=== PATIENT | male | born 1965 | race Caucasian/White ===

== ENCOUNTER 2019-01-12 17:48 | Emergency (ER) | payer SELFPAY ==
--- NOTE | 2019-01-12 18:13 | ER Document Report ---
ED Medical Screen (RME) - General Chief Complaint: Psych Problem Stated Complaint: IVC Time Seen by Provider: 01/12/19 18:05 TRAVEL OUTSIDE OF THE [place] IN LAST 30 DAYS: No - HPI Notes: 01/12/19 18:10 Patient is a 53-year-old male with a history of hypertension emergency (not currently on any medication) and alcohol abuse who was residing at [facility] since this past Sunday who presents by also [facility] on IVC papers for having SI and aggression. Patient does admit to auditory hallucinations. Patient states that right now he cannot tell me how he feels. He has otherwise been able to eat and drink without difficulty. He has not had any alcohol for the past week. No HI. Denies FELIX, fever, neck pain, URI, CP, SOB, Abd pain, dysuria, back pain, or rash. I have treated and performed a rapid initial assessment of this patient. A comprehensive ED assessment and evaluation of the patient, analysis of test results and completion of medical decision making process will be conducted by a dditional ED providers. PHYSICAL EXAMINATION: GENERAL: Well-appearing, well-nourished and in no acute distress. A&Ox4. Answers questions appropriately. LUNGS: Breath sounds clear to auscultation bilaterally and equal. No wheezes rales or rhonchi. HEART: Regular rate and rhythm without murmurs, rubs, gallops. PSYCH: irritable, frustrated - Related Data Allergies/Adverse Reactions: Penicillins Allergy (Verified 01/12/19 17:49) Past Medical History - Past Medical History Cardiac Medical History: Reports: Hx Hypertension Psychiatric Medical History: Reports: Hx Anxiety, Hx Depression, Hx Post Traumatic Stress Disorder Past Surgical History: Reports: Hx Abdominal Surgery - Hernia, Hx Oral Surgery - Immunizations Hx Diphtheria, Pertussis, Tetanus Vaccination: No Physical Exam - Vital signs Vitals: Temp Pulse Resp BP Pulse Ox 98.9 F 99 14 184/110 H 96 01/12/19 17:58 01/12/19 17:58 01/12/19 17:58 01/12/19 17:58 01/12/19 17:58 Course - Vital Signs Vital signs: Temp Pulse Resp BP Pulse Ox 98.9 F 99 14 184/110 H 96 01/12/19 17:58 01/12/19 17:58 01/12/19 17:58 01/12/19 17:58 01/12/19 17:58
[2019-01-12 19:18] LABS: ABSOLUTE BASOPHILS # (AUTO) 0.1 10^3/uL (0.0-0.2); ABSOLUTE EOSINOPHILS # (AUTO) 0.3 10^3/uL (0.0-0.6); ABSOLUTE LYMPHOCYTES (AUTO) 1.7 10^3/uL (0.5-4.7); ABSOLUTE MONOCYTES (AUTO) 0.8 10^3/uL (0.1-1.4); ABSOLUTE NEUT (AUTO) 4.4 10^3/uL (1.7-8.2); BASOPHILS % (AUTO) 1.4 % (0-2); EOSINOPHILS % (AUTO) 4.1 % (0-6); HEMATOCRIT 39.8 % (37.9-51.0); HEMOGLOBIN 13.3 g/dL (13.5-17.0); LYMPHOCYTES % (AUTO) 23.4 % (13-45); MEAN CORPUSCULAR HEMOGLOBIN 29.8 pg (27.0-33.4); MEAN CORPUSCULAR HGB CONC 33.4 g/dL (32.0-36.0); MEAN CORPUSCULAR VOLUME 89 fl (80-97); MONOCYTES % (AUTO) 10.6 % (3-13); PLATELET COUNT 261 10^3/uL (150-450); RED BLOOD COUNT 4.46 10^6/uL (4.35-5.55); RED CELL DISTRIBUTION WIDTH 15.4 % (11.5-14.0); SEGMENTED NEUTROPHILS % (AUTO) 60.5 % (42-78); TOTAL CELLS COUNTED % (AUTO) 100 %; WHITE BLOOD COUNT 7.2 10^3/uL (4.0-10.5)
[2019-01-12 19:21] LABS: APPEARANCE,URINE CLEAR; BILIRUBIN,URINE NEGATIVE (NEGATIVE); COLOR,URINE YELLOW; GLUCOSE, URINE NEGATIVE (NEGATIVE); KETONES,URINE TRACE mg/dL (NEGATIVE); LEUKOCYTE ESTERASE,URINE NEGATIVE (NEGATIVE); NITRITE,URINE NEGATIVE (NEGATIVE); PROTEIN,URINE NEGATIVE (NEGATIVE); URINE SPECIFIC GRAVITY 1.018; UROBILINOGEN,URINE NEGATIVE mg/dL (<2.0)
[2019-01-12 19:36] LABS: URINE AMPHETAMINES SCREEN NEGATIVE; URINE BARBITURATES SCREEN NEGATIVE; URINE BENZODIAZEPINES SCREEN NEGATIVE; URINE COCAINE SCREEN NEGATIVE; URINE MARIJUANA (THC) SCREEN UNCONFIRMED POSITIVE; URINE METHADONE SCREEN NEGATIVE; URINE PHENCYCLIDINE SCREEN NEGATIVE
[2019-01-12 19:39] LABS: ALBUMIN 3.9 g/dL (3.5-5.0); ALKALINE PHOSPHATASE 90 U/L (38-126); ANION GAP 7 (5-19); ASPARTATE AMINO TRANSFERASE 22 U/L (17-59); BILIRUBIN,DIRECT 0.2 mg/dL (0.0-0.4); BILIRUBIN,TOTAL 0.2 mg/dL (0.2-1.3); BLOOD UREA NITROGEN 12 mg/dL (7-20); CALCIUM 9.1 mg/dL (8.4-10.2); CARBON DIOXIDE 31 mmol/L (22-30); CHLORIDE 101 mmol/L (98-107); GLUCOSE 98 mg/dL (75-110); POTASSIUM 4.2 mmol/L (3.6-5.0); TOTAL PROTEIN 6.7 g/dL (6.3-8.2)
[2019-01-12 19:41] LABS: ACETAMINOPHEN < 10 ug/mL (10-30); ALCOHOL < 10 mg/dL (NONE DETECTED); SALICYLATE < 1.0 mg/dL (2.0-20.0)
[2019-01-12] MEDS ORDERED: LORAZEPAM 1 MG TABLET PO PRN (20:58)
[2019-01-12] MEDS ORDERED: HYDROXYZINE HCL 10 MG TABLET PO PRN (20:59)
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
[2019-01-12] MEDS: LISINOPRIL 10 MG TABLET PO SCH (21:09)
[2019-01-12] MEDS ORDERED: ROPINIROLE HCL 0.25 MG TABLET PO SCH (22:00)
[2019-01-12] MEDS ORDERED: QUETIAPINE FUMARATE 100 MG TABLET PO SCH (22:15)
[2019-01-12] MEDS ORDERED: ROPINIROLE HCL 0.25 MG TABLET ONE (22:37)
--- NOTE | 2019-01-12 22:40 | EKG REPORT ---
SEVERITY:- BORDERLINE ECG - SINUS RHYTHM VENTRICULAR PREMATURE COMPLEX BORDERLINE INFERIOR Q WAVES : Confirmed by: Yuri Pena MD 12-Jan-2019 22:38:40
[2019-01-13] MEDS ORDERED: ACETAMINOPHEN 325 MG TABLET PO ONE (07:41)
[2019-01-13 08:28] VITALS: BP 181/110
[2019-01-13] MEDS: LISINOPRIL 10 MG TABLET PO SCH (09:34)
--- NOTE | 2019-01-13 10:06 | ER Document Report ---
Doctor's Note Notes: 01/13/19 10:04 Patient is a 53-year-old male presents the emergency department for evaluation. He was sent for evaluation from [facility]. Evidently he expressed suicidal ideation there. They stated there was "nothing else they could do for him." He has a long-standing history of alcohol dependence. He states he is suicidal. He states he plans to "drink himself to ." He admits openly that he has no place to go. He states "I need to be placed in a long-term psychiatric facility." He complains of a headache, but states that the Tylenol he was given earlier [place] is some. Physical exam is a pleasant 53-year-old male who appears his stated age in no acute distress. Head is neuropsych and atraumatic. Pupils are equal round, reactive to light. Oral mucosa is moist. Heart regular rate and rhythm, lungs are clear station bilaterally. Patient is cooperative with examiner, but makes diminished eye contact. In summary, this is a 53-year-old male with long-standing history of substance abuse. There is certainly a significant amount of secondary gain with him claiming to be suicidal at this time, as he does not have any place to go. He states he has no family or friends with which he can stay. He asks to be placed somewhere long-term. We will defer to psychosocial evaluation for ultimate disposition.
[2019-01-13] MEDS ORDERED: OLANZAPINE 2.5 MG TABLET PO SCH (11:00)
[2019-01-13] MEDS ORDERED: IBUPROFEN 600 MG TABLET PO ONE (13:29)
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
== END 2019-01-13 14:25 | disposition home or self-care (01) ==
LOC: ER 17:48
DX: R45.851 Suicidal ideations (principal); F10.20 Alcohol dependence, uncomplicated; I10 Essential (primary) hypertension; R51 Headache; I49.3 Ventricular premature depolarization; G47.00 Insomnia, unspecified; F17.200 Nicotine dependence, unspecified, uncomplicated; F12.10 Cannabis abuse, uncomplicated; F32.9 Major depressive disorder, single episode, unspecified; F41.9 Anxiety disorder, unspecified; R25.1 Tremor, unspecified; D64.9 Anemia, unspecified; G25.81 Restless legs syndrome; Z59.0 Homelessness; Z86.59 Personal history of other mental and behavioral disorders; Z62.819 Personal history of unspecified abuse in childhood; Z88.0 Allergy status to penicillin
CPT/HCPCS: 93005; 99285; 36415; 80307 ×4; 85025; 80053; 81001; 93010; J3490

== ENCOUNTER 2019-01-13 18:50 | Emergency (ER) | payer SELFPAY ==
--- NOTE | 2019-01-13 19:30 | ER Document Report ---
ED Medical Screen (RME) - General Chief Complaint: Suicidal Ideation Stated Complaint: PSYCH Time Seen by Provider: 01/13/19 19:28 Notes: Patient is a 53-year-old male with a history of bipolar, hypertension, depression who presents to the emergency department with a chief complaint of suicidal ideation. Patient states he was discharged from this facility around noon today. Patient states he never left the facility and called mobile crisis from the lobby. He states he called mobile crisis because he continued to have suicidal ideation. He reports that he thought about almost jumping out in front of a truck but promised the lady that he would call crisis if he started to have any of these thoughts. Patient states the lady from mobile crisis attempted to get him placement into an inpatient therapy but was unable to do so due to the holiday. She told the patient to check back into the emergency department and the mental health staff will attempt to find him placement tomorrow. TRAVEL OUTSIDE OF THE [place] IN LAST 30 DAYS: No - Related Data Allergies/Adverse Reactions: Penicillins Allergy (Verified 01/13/19 18:56) Past Medical History - Past Medical History Cardiac Medical History: Reports: Hx Hypertension Psychiatric Medical History: Reports: Hx Anxiety, Hx Depression - and axiety, Hx Post Traumatic Stress Disorder Past Surgical History: Reports: Hx Abdominal Surgery - Hernia, Hx Oral Surgery - Immunizations Hx Diphtheria, Pertussis, Tetanus Vaccination: No Physical Exam - Vital signs Vitals: Temp Pulse Resp BP Pulse Ox 98.2 F 94 16 157/88 H 99 01/13/19 19:09 01/13/19 19:09 01/13/19 19:01/13/19 19:09 01/13/19 19:09 - Cardiovascular Rhythm: Regular Heart sounds: Normal auscultation, S1 appreciated, S2 appreciated - Abdominal Inspection: Normal Distension: No distension Bowel sounds: Normal Tenderness: Nontender Organomegaly: No organomegaly Course - Re-evaluation Re-evalutation: 01/13/19 19:30 I have greeted and performed a rapid initial assessment of this patient. A comprehensive ED assessment and evaluation of the patient, analysis of test results and completion of the medical decision making process will be conducted by additional ED providers. - Vital Signs Vital signs: Temp Pulse Resp BP Pulse Ox 98.2 F 94 16 157/88 H 99 01/13/19 19:01/13/19 19:01/13/19 19:01/13/19 19:01/13/19 19:09
--- NOTE | 2019-01-13 19:59 | ER Document Report ---
ED Psych Disorder / Suicide - General Chief Complaint: Suicidal Ideation Stated Complaint: PSYCH Time Seen by Provider: 01/13/19 19:59 Mode of Arrival: Ambulatory Information source: Patient Notes: HISTORY OF PRESENT ILLNESS: Patient is a 53-year-old male with a past medical history of chronic depression, polysubstance abuse, and homelessness who presents with persistent depression. Of note, the patient was seen 1 day ago and observed overnight, was medically cleared, was discharged this morning but really presents for ongoing symptoms. Onset: Chronic Provocation: None Quality: Depression Radiation: None Severity: Mild to moderate Timing: Constant SI/HI: None Hallucinations: None Current therapist: "Crisis management" Current treatment: Seroquel REVIEW OF SYSTEMS: CONSTITUTIONAL : [Denies] fever or chills, no sweats. Denies recent illness. EENT: Denies eye, ear, throat, or mouth pain or symptoms. Denies nasal or sinus congestion. CARDIOVASCULAR: [Denies] chest pain. RESPIRATORY: [Denies] cough, cold, or chest congestion. [Denies] shortness of breath, difficulty breathing, or wheezing. GASTROINTESTINAL: [Denies] abdominal pain. Denies nausea, vomiting, or diar johnathan. Denies constipation. GENITOURINARY: Denies difficulty urinating, painful urination, burning, frequency, or blood in urine. [FEMALE GENITOURINARY: Denies vaginal bleeding, abnormal or irregular periods. Last menstrual period] MUSCULOSKELETAL: Denies neck or back pain or joint pain or swelling. SKIN: Denies rash or skin lesions. HEMATOLOGIC : Denies easy bruising or bleeding. LYMPHATIC: Denies swollen, enlarged glands. NEUROLOGICAL: Denies altered mental status or loss of consciousness. Denies headache. Denies weakness or paralysis or loss of use of either side. Denies problems with gait or speech. Denies sensory or motor loss. PSYCHIATRIC: [Denies suicidal/homicidal thoughts]. Positive for depression. All other systems reviewed and negative. PHYSICAL EXAMINATION: GENERAL: [Well]-appearing, [well]-nourished and in [no] acute distress. HEAD: Atraumatic, normocephalic. No scalp deformity, depression, or crepitance. EYES: Pupils are [3]mm and equal/round/reactive to light, extraocular movements intact, sclera anicteric, conjunctiva are normal. ENT: Nares patent bilaterally, oropharynx [clear without exudates or palatal petechia]. Moist mucous membranes. No tonsil hypertrophy. NECK: Normal range of motion, supple [without] lymphadenopathy. LUNGS: Breath sounds [present, equal, and clear to auscultation bilaterally]. [No wheezes, rales, or rhonchi]. HEART: Regular rate and rhythm without murmurs, rubs, or gallops. 2+ peripheral pulses. [Normal] capillary refill. ABDOMEN: [Soft, nontender, nondistended]. Normoactive bowel sounds. No guarding, no rebound. No masses appreciated. [BACK: Normal contour, no midline tenderness. Rectal exam deferred.] [GENITAL/PELVC: Deferred.] EXTREMITIES: Normal range of motion, [no] pitting or edema. No cyanosis. NEUROLOGICAL: No focal neurological deficits. Moves all extremities spontaneously and on command. PSYCH: [Normal] mood, [normal] affect. [No] suicidal thoughts/ideations. [No] homicidal thoughts/ideations. [No] hallucinations. SKIN: Warm, dry, normal turgor, no rashes or lesions noted. ASSESSMENT AND PLAN: This patient is a 53-year-old male who presents with ongoing chronic depression and homelessness. I do not believe the patient is at imminent risk of self-harm or harming others. Patient is homeless and during our encounter does not have a depressed affect and voices no suicidality. 1. Will review previous presentations and work-up. 2. Will reassess for possible discharge. TRAVEL OUTSIDE OF THE [place] IN LAST 30 DAYS: No - HPI Patient complains to provider of: Other - Depression Onset: Just prior to arrival Onset was: Gradual Quality of pain: No pain Severity: Mild Pain Level: Denies Suicide Risk Factors: Chronic illness, Depressed, Male, Substance abuse Situational problems related to: Other - Homelessness Suicide Attempt Method: denies: Drowning, Hanging, Motor Vehicle, Overdose, Shooting, Stabbing/Cutting, Train, Other Overdose of: No: Acetominophen, Alcohol, Anticholinergic, Anti-depressants, Benzodiazepine, Salicylate, Tricyclic Antidepressant, Other Normal mood: Yes Associated symptoms: Normal affect, Normal mood. No: Aggressive, Agitated, Angry, Anxious, Auditory hallucinations, Depressed Similar symptoms previously: Yes Recently seen / treated by doctor: Yes - Related Data Allergies/Adverse Reactions: Penicillins Allergy (Verified 01/13/19 18:56) Past Medical History - General Information source: Patient - Social History Smoking Status: Current Every Day Smoker Cigarette use (# per day): Yes Chew tobacco use (# tins/day): No Smoking Education Provided: No Frequency of alcohol use: Heavy Drug Abuse: Cocaine, Marijuana Lives with: Alone, Homeless Family History: Reviewed & Not Pertinent Patient has suicidal ideation: No Patient has homicidal ideation: No - Medical History Medical History: Negative - Past Medical History Cardiac Medical History: Reports: Hx Hypertension Pulmonary Medical History: Reports: None EENT Medical History: Reports: None Neurological Medical History: Reports: None Endocrine Medical History: Reports: None Renal/ Medical History: Reports: None Malignancy Medical History: Reports None GI Medical History: Reports: None Musculoskeletal Medical History: Reports None Psychiatric Medical History: Reports: Hx Anxiety, Hx Depression - and axiety, Hx Post Traumatic Stress Disorder Traumatic Medical History: Reports: None Infectious Medical History: Reports: None Past Surgical History: Reports: Hx Abdominal Surgery - Hernia, Hx Oral Surgery - Immunizations Immunizations up to date: Yes Hx Diphtheria, Pertussis, Tetanus Vaccination: No Review of Systems - Review of Systems Constitutional: No symptoms reported EENT: No symptoms reported Cardiovascular: No symptoms reported Respiratory: No symptoms reported Gastrointestinal: No symptoms reported Genitourinary: No symptoms reported Male Genitourinary: No symptoms reported Musculoskeletal: No symptoms reported Skin: No symptoms reported Hematologic/Lymphatic: No symptoms reported Neurological/Psychological: Depression -: Yes All other systems reviewed and negative Physical Exam - Vital signs Vitals: Temp Pulse Resp BP Pulse Ox 98.2 F 94 16 157/88 H 99 01/13/19 19:09 01/13/19 19:09 01/13/19 19:09 01/13/19 19:09 01/13/19 19:09 Interpretation: Normal Course - Re-evaluation Re-evalutation: 01/13/19 20:43 Will discharge the patient home with strict return precautions and follow-up with mental health in the mobile crisis unit. All results were explained to and discussed with the patient, and all questions addressed and answered for the patient. The patient agrees with the plan. 01/14/19 01:02 Will discharge the patient home with strict return precautions and follow-up with your primary physician. All results were explained to and discussed with the patient, and all questions addressed and answered for the patient. The patient voices both understanding and agreeing with the plan. - Vital Signs Vital signs: Temp Pulse Resp BP Pulse Ox 98.2 F 94 16 157/88 H 99 01/13/19 19:09 01/13/19 19:09 01/13/19 19:09 01/13/19 19:09 01/13/19 19:09 - EKG Interpretation by Me EKG shows normal: Sinus rhythm Rate: Normal Rhythm: NSR [place]/QRS: No: Right axis deviation, Left axis deviation, RBBB, LBBB, IVCD, LAHB/LAFB, LPHB/LPFB, Bifasicular block Voltage: No: Increased voltage, Consistant with LVH, Decreased voltage, Throughout, Limb leads P Waves: No: VU, LAE, Absent, AV Dissociation, Other When compared to previous EKG there are: No significant change Discharge - Discharge Clinical Impression: Homelessness Depression Qualifiers: Depression Type: unspecified Qualified Code(s): F32.9 - Major depressive diso rder, single episode, unspecified Condition: Good Disposition: HOME, SELF-CARE Instructions: Depression ([facility]), Family Physicians / Practices Additional Instructions: You have been evaluated in the Emergency Department for chronic depression. While here, you were observed and it is now safe to be discharged home. Please follow-up with your primary physician as instructed in 1 week. Return to the Emergency Department if you experience worsening depression, thoughts of hurting yourself, or any other concerning symptoms. Print Language: Polish
[2019-01-14 08:54] VITALS: BP 148/73
--- NOTE | 2019-01-14 23:34 | EKG REPORT ---
SEVERITY:- BORDERLINE ECG - SINUS RHYTHM ATRIAL PREMATURE COMPLEX BORDERLINE INFERIOR Q WAVES : Confirmed by: Margarita Knox 14-Jan-2019 23:34:05
== END 2019-01-14 08:58 | disposition home or self-care (01) ==
LOC: ER 18:50
DX: F32.9 Major depressive disorder, single episode, unspecified (principal); F19.10 Other psychoactive substance abuse, uncomplicated; Z59.0 Homelessness; F14.10 Cocaine abuse, uncomplicated; F12.10 Cannabis abuse, uncomplicated; F17.210 Nicotine dependence, cigarettes, uncomplicated; I10 Essential (primary) hypertension
CPT/HCPCS: 93005; 93010; 99283

== ENCOUNTER 2019-02-11 09:10 | Inpatient (IN) | payer SELFPAY ==
--- NOTE | 2019-02-11 09:37 | ER Document Report ---
ED Medical Screen (RME) - General Stated Complaint: CHEST PAIN Time Seen by Provider: 02/11/19 09:31 Mode of Arrival: Medic Information source: Patient Notes: 53-year-old alcoholic coming in to get detox. He states he had 1/5 of vodka this morning states he smokes a pack to 2 a day smokes pot once in a while is homeless. He states he has a history of cirrhosis and high blood pressure. He states he needs detox and is having chest pain this morning. He has nitroglycerin and aspirin given to him in the EMS. He is shaking moving around a lot states he feels lightheaded. I have greeted and performed a rapid initial assessment of this patient. A comprehensive ED assessment and evaluation of the patient, analysis of test results and completion of medical decision making process will be conducted by an additional ED providers. TRAVEL OUTSIDE OF THE [place] IN LAST 30 DAYS: No - Related Data Allergies/Adverse Reactions: Penicillins Allergy (Verified 01/13/19 18:56) Past Medical History - Past Medical History Cardiac Medical History: Reports: Hx Hypertension Psychiatric Medical History: Reports: Hx Anxiety, Hx Depression - and axiety, Hx Post Traumatic Stress Disorder Past Surgical History: Reports: Hx Abdominal Surgery - Hernia, Hx Oral Surgery - Immunizations Immunizations up to date: Yes Hx Diphtheria, Pertussis, Tetanus Vaccination: No
[2019-02-11 10:21] LABS: ABSOLUTE BASOPHILS # (AUTO) 0.1 10^3/uL (0.0-0.2); ABSOLUTE EOSINOPHILS # (AUTO) 0.2 10^3/uL (0.0-0.6); ABSOLUTE LYMPHOCYTES (AUTO) 1.4 10^3/uL (0.5-4.7); ABSOLUTE MONOCYTES (AUTO) 0.6 10^3/uL (0.1-1.4); ABSOLUTE NEUT (AUTO) 3.8 10^3/uL (1.7-8.2); BASOPHILS % (AUTO) 1.3 % (0-2); EOSINOPHILS % (AUTO) 2.6 % (0-6); HEMATOCRIT 44.4 % (37.9-51.0); HEMOGLOBIN 15.1 g/dL (13.5-17.0); LYMPHOCYTES % (AUTO) 23.4 % (13-45); MEAN CORPUSCULAR HEMOGLOBIN 30.1 pg (27.0-33.4); MEAN CORPUSCULAR HGB CONC 34.1 g/dL (32.0-36.0); MEAN CORPUSCULAR VOLUME 88 fl (80-97); MONOCYTES % (AUTO) 9.9 % (3-13); PLATELET COUNT 193 10^3/uL (150-450); RED BLOOD COUNT 5.02 10^6/uL (4.35-5.55); RED CELL DISTRIBUTION WIDTH 14.4 % (11.5-14.0); SEGMENTED NEUTROPHILS % (AUTO) 62.8 % (42-78); TOTAL CELLS COUNTED % (AUTO) 100 %
[2019-02-11 10:48] LABS: ALBUMIN 4.3 g/dL (3.5-5.0); ALCOHOL 133 mg/dL (NONE DETECTED); ALKALINE PHOSPHATASE 132 U/L (38-126); ANION GAP 13 (5-19); ASPARTATE AMINO TRANSFERASE 133 U/L (17-59); BILIRUBIN,DIRECT 0.3 mg/dL (0.0-0.4); BILIRUBIN,TOTAL 0.8 mg/dL (0.2-1.3); BLOOD UREA NITROGEN 12 mg/dL (7-20); CALCIUM 8.7 mg/dL (8.4-10.2); CARBON DIOXIDE 22 mmol/L (22-30); CHLORIDE 102 mmol/L (98-107); GLUCOSE 92 mg/dL (75-110); POTASSIUM 4.2 mmol/L (3.6-5.0); TOTAL PROTEIN 7.6 g/dL (6.3-8.2)
[2019-02-11 10:49] LABS: ACETAMINOPHEN < 10 ug/mL (10-30); SALICYLATE < 1.0 mg/dL (2.0-20.0)
[2019-02-11] MEDS ORDERED: THIAMINE HCL 100 MG, FOLIC ACID 1 MG in NORMAL SALINE 250 ML IV ONE (10:58)
[2019-02-11] MEDS ORDERED: LORAZEPAM INJ 2 MG/1 ML VIAL IV ONE ×2 (10:59→18:53)
[2019-02-11] MEDS ORDERED: MAGNESIUM SULFATE/D5W 1 GM/100 ML RTUPB IV ONE ×2 (11:00→22:11)
[2019-02-11 11:01] LABS: APPEARANCE,URINE CLEAR; BILIRUBIN,URINE NEGATIVE (NEGATIVE); COLOR,URINE YELLOW; GLUCOSE, URINE NEGATIVE (NEGATIVE); KETONES,URINE NEGATIVE (NEGATIVE); LEUKOCYTE ESTERASE,URINE NEGATIVE (NEGATIVE); NITRITE,URINE NEGATIVE (NEGATIVE); PROTEIN,URINE NEGATIVE (NEGATIVE); URINE SPECIFIC GRAVITY 1.003; UROBILINOGEN,URINE NEGATIVE mg/dL (<2.0)
[2019-02-11] MEDS ORDERED: ONDANSETRON HCL INJ/PF 4 MG/2 ML SDV IV ONE ×3 (11:02→17:52)
--- NOTE | 2019-02-11 11:10 | ER Document Report ---
ED General <GERMAN KATZ - Last Filed: 02/11/19 15:18> - General Mode of Arrival: Medic TRAVEL OUTSIDE OF THE [place] IN LAST 30 DAYS: No <KIMI RÍOS - Last Filed: 02/11/19 17:24> - General Chief Complaint: Chest Pain Stated Complaint: CHEST PAIN Time Seen by Provider: 02/11/19 09:31 Primary Care Provider: [facility] [Outside] - Follow up as needed [facility] [Outside] - 02/12/19 8:00 am ([facility] does walk in Sunday-Sunday [id number]. You should walk in tomorrow (02/12/19) at 0800. ) - HPI Notes: This is a 53-year-old gentleman who presents today with a complaint of pain across his chest wall for the past day or 2, worse this morning. Patient states that his pain is worse with movement and palpation. He was given aspirin and nitroglycerin by EMS without any change in his pain. Patient also notes that he has been very depressed lately. He has been drinking since Sunday, described as drinking as pains because of his depression. He admits that he was drinking to . He denies active suicidal thoughts at this time but states he has been having sure that all weekend long. Describes some nausea and vomiting also. He denies any fever or chills. (KIMI RÍOS) - Related Data Allergies/Adverse Reactions: Penicillins Allergy (Verified 01/13/19 18:56) Past Medical History - General Information source: Patient - Social History Smoking Status: Current Every Day Smoker Chew tobacco use (# tins/day): No Frequency of alcohol use: Heavy Drug Abuse: Marijuana Family History: Reviewed & Not Pertinent Patient has suicidal ideation: No Patient has homicidal ideation: No - Past Medical History Cardiac Medical History: Reports: Hx Hypertension Psychiatric Medical History: Reports: Hx Anxiety, Hx Depression - and axiety, Hx Post Traumatic Stress Disorder Past Surgical History: Reports: Hx Abdominal Surgery - Hernia, Hx Oral Surgery - Immunizations Immunizations up to date: Yes Hx Diphtheria, Pertussis, Tetanus Vaccination: No <KIMI RÍOS - Last Filed: 02/11/19 17:24> Review of Systems - Review of Systems Constitutional: denies: Fever Cardiovascular: Chest pain. denies: Palpitations, Heart racing Gastrointestinal: Abdominal pain, Nausea, Vomiting Neurological/Psychological: denies: Headaches -: Yes All other systems reviewed and negative <KIMI RÍOS - Last Filed: 02/11/19 17:24> Physical Exam - Vital signs Interpretation: Normal - General General appearance: Appears well, Alert - Respiratory Respiratory status: No respiratory distress Chest status: Tender - There is left upper chest wall tenderness to palpation. There is reproducible pain with movement. Breath sounds: Normal Chest palpation: Normal - Cardiovascular Rhythm: Regular Heart sounds: Normal auscultation Murmur: No - Abdominal Inspection: Normal Distension: No distension Bowel sounds: Normal Tenderness: Tender - There is slight epigastric tenderness. No guarding no rebound. Organomegaly: No organomegaly - Back Back: Normal, Nontender - Neurological Neuro grossly intact: Yes Cognition: Normal Orientation: AAOx4 [place] Coma Scale Eye Opening: Spontaneous [place] Coma Scale Verbal: Oriented [place] Coma Scale Motor: Obeys Commands Jaden Coma Scale Total: 15 Speech: Normal Motor strength normal: LUE, RUE, LLE, RLE Sensory: Normal - Psychological Associated symptoms: Depressed - Patient admits to being depressed. He admits to suicidal thoughts during the weekend, but denies active thoughts at this time., Flat affect - Skin Skin Temperature: Warm Skin Moisture: Dry Skin Color: Normal <KIMI RÍOS - Last Filed: 02/11/19 17:24> - Vital signs Vitals: Resp Pulse Ox 24 H 98 02/11/19 10:30 02/11/19 10:30 Notes: Vital signs reviewed. Unremarkable. Patient on monitor. (KIMI RÍOS) - General Notes: Patient has some slight tremors. (KIMI RÍOS) Course - Laboratory Result Diagrams: 02/11/19 08:49 02/11/19 08:49 <GERMAN KATZ - Last Filed: 02/11/19 15:18> - Laboratory Result Diagrams: 02/11/19 08:49 02/11/19 08:49 <KIMI RÍOS - Last Filed: 02/11/19 17:24> - Re-evaluation Re-evalutation: 02/11/19 11:09 Differential diagnosis includes chest wall pain versus chest wall strain. Doubt acute coronary syndrome with atypical chest pain, reproducible, greater than 6 hours. Cannot rule out with one negative set of enzymes. 2. Alcohol abuse, depression. I will get behavioral health assessment done. 3. Will check lipase given strict epigastric discomfort. We will put him on the CIWA scale also. EKG shows sinus tachycardia at 108 bpm. Normal axis. Normal intervals. No acute injury pattern. 02/11/19 14:38 Patient reevaluated. Labs and chest x-ray reviewed. Repeat EKG is essentially unchanged from initial EKG. I will get a second troponin. 02/11/19 17:21 Patient reevaluated. Patient is doing well. Patient has been seen by psych. Recommendation for outpatient management for alcohol detox was made. He is stable for discharge. Labs and imaging reviewed. Discussed with patient. (KIMI RÍOS) - Vital Signs Vital signs: Temp Pulse Resp BP Pulse Ox 98.5 F 12 194/104 H 98 02/11/19 11:49 02/11/19 16:01 02/11/19 16:01 02/11/19 16:01 - Laboratory Laboratory results interpreted by me: 02/11/19 02/11/19 02/11/19 08:49 08:49 08:49 RDW 14.4 H Sodium 136.8 L Magnesium 1.5 L AST 133 H Alkaline Phosphatase 132 H Creatine Kinase 476 H Urine Blood Salicylates < 1.0 L Acetaminophen < 10 L 02/11/19 10:43 RDW Sodium Magnesium AST Alkaline Phosphatase Creatine Kinase Urine Blood SMALL H Salicylates Acetaminophen Discharge <GERMAN KATZ - Last Filed: 02/11/19 15:18> <KIMI RÍOS - Last Filed: 02/11/19 17:24> - Discharge Clinical Impression: Alcohol abuse, Anxiety, Atypical chest pain Alcohol intoxication Qualifiers: Complication of substance-induced condition: uncomplicated Qualified Code(s): F10.920 - Alcohol use, unspecified with intoxication, uncomplicated Condition: Stable Disposition: HOME, SELF-CARE Instructions: Chronic Alcoholism ([facility]), Chest Pain of Unclear Cause ([facility]) Additional Instructions: You have been evaluated by medical and behavioral health providers while in the emergency department. You have been cleared from both medical and psychiatric services. Alcohol is a depressant so affects mental health (depression, inhibits cognition and impairs insight/judgment/impulse control) and medical health (many organs such as liver and heart) often deteriorate. You should follow up with outpatient mental health services for ongoing care/treatment/support and have been provided resources. You are being linked to other professional supports locally for additional case management and wrap around services. CHRONIC ALCOHOLISM and ALCOHOL ABUSE: Your evaluation reveals evidence of chronic alcoholism, an addiction to alcohol. The tendency to alcoholism may be inherited. Chronic use of alcohol weakens muscles, causes fatty deposits in the liver, damages the stomach, makes you more prone to infections, and can cause defects in unborn children. In the long run, brain atrophy and cirrhosis of the liver result. You are also at greater risk for certain types of cancer, such as cancer of the mouth, throat, stomach, and liver. Counselling services are available to help you. In-hospital treatment programs often help. Support groups such as Alcoholics Anonymous can be very useful in beating this addiction. Your physician can make a referral for you. As alcoholics often are prone to other addictions, you should discuss your use of any other medications with the doctor. ALCOHOL WITHDRAWAL: (concerns for this if you choose to abstain from alcohol use Your symptoms are caused by alcohol withdrawal. After a period of frequent drinking, the brain and body are changed by the alcohol. When you quit or reduce your drinking, the nervous system becomes unstable. Withdrawal symptoms can start a few hours after your last drink, but sometimes don't begin until a couple of days later. Symptoms can include shakiness, sweating, insomnia, nausea, vomiting, fearfulness, hallucinations, and seizures. In addition to the acute effects of alcohol withdrawal, we often have to deal with the medical effects of alcoholism. These problems often include dehydration, stomach irritation, intestinal bleeding, low blood sugar, liver disease, and pancreas inflammation. Treatment for alcohol withdrawal includes mild sedatives, vitamins, and fluids. You need to be with someone who can help if symptoms become severe. Many patients can withdraw at home. Admission to the hospital or a detox facility may be necessary if withdrawal symptoms are severe and uncontrollable. Abstaining from alcohol is the only effective long-term treatment. If you start drinking again, you will not be able to control yourself after the first drink. Treatment programs are available. In addition, many alcoholics benefit from Alcoholics Anonymous or other support groups available through your counselor or taoism car stereo installer. [employer]-ANOL[employer] and [employer]ANDA[employer]TE[employer] are support groups for friends and family members of an alcoholic. Go to the emergency room if you develop persistent vomiting, severe abdominal pain, fever, shortness of breath, hallucinations, uncontrollable t remors, or seizures. Anxiety (may be related to alcohol use) The physician feels that some of your health problems are being caused by anxiety. Anxiety affects your health in many ways. Anxiety alone can cause palpitations, sweats, chest pains, abdominal pains, shortness of breath, and headaches. It contributes to ulcer disease, high blood pressure, irritable bowel syndrome, and has been shown to cause flare-ups of many other diseases. Anxiety is not a simple disorder to treat. If the anxiety is due to recent life stresses, you may simply need time to "work through" the changes. If the anxiety is due to an underlying unhappiness with yourself or due to psychiatric disturbance, professional help will be needed. Your physician can refer you for further help if needed. Anti-anxiety medication is occasionally given if the stress is acute or if you are having trouble sleeping. Chronic or frequent use of these medications is not a good idea because the body becomes reliant on it, preventing you from dealing with life's normal stresses. FOLLOW-UP CARE: You are being referred to [facility] (as case management only). You should follow up with [facility] for outpatient dual diagnosis mental health and substance abuse treatment. You have been provided the outpatient mental health resource sheet which highlighted [facility] as well as [facility] Mobile Crisis number. If you experience worsening or a significant change in your symptoms, notify the physician immediately, utilize mobile crisis or return to the Emergency Department at any time for re-evaluation. Referrals: [facility] Crisis Team [Outside] - Follow up as needed [facility] [Outside] - 02/12/19 8:00 am ([facility] does walk in Sunday- Sunday [id number]. You should walk in tomorrow (02/12/19) at 0800. ) [facility] [NO [facility]AL MD] - Follow up as needed
[2019-02-11 11:13] LABS: URINE AMPHETAMINES SCREEN NEGATIVE; URINE BARBITURATES SCREEN NEGATIVE; URINE BENZODIAZEPINES SCREEN NEGATIVE; URINE COCAINE SCREEN NEGATIVE; URINE MARIJUANA (THC) SCREEN NEGATIVE; URINE METHADONE SCREEN NEGATIVE; URINE PHENCYCLIDINE SCREEN NEGATIVE
[2019-02-11 11:56] LABS: CREATINE KINASE MB 3.86 ng/mL (<4.55); TROPONIN I 0.018 ng/mL
--- NOTE | 2019-02-11 11:59 | RADIOLOGY REPORT (SQ) ---
EXAM DESCRIPTION: CHEST SINGLE VIEW COMPLETED DATE/TIME: 02/11/2019 11:51 am REASON FOR STUDY: chest pain COMPARISON: CT angio chest 05/12/2015 Two-view chest 05/12/2015 EXAM PARAMETERS: NUMBER OF VIEWS: One view. TECHNIQUE: Single frontal radiographic view of the chest acquired. RADIATION DOSE: NA LIMITATIONS: None. FINDINGS: LUNGS AND PLEURA: No opacities, masses or pneumothorax. No pleural effusion. MEDIASTINUM AND HILAR STRUCTURES: No masses. Contour normal. HEART AND VASCULAR STRUCTURES: Heart normal in size. Normal vasculature. BONES: Multiple left-sided rib fractures. HARDWARE: None in the chest. OTHER: No other significant finding. IMPRESSION: NO ACUTE RADIOGRAPHIC FINDING IN THE CHEST. TECHNICAL DOCUMENTATION: JOB ID: [id number] [employer]- All Rights Reserved Reading location - IP/workstation name: [email or web address]
[2019-02-11] MEDS ORDERED: MAG HYDROX/AL HYDROX/SIMETH SUSP 30 ML UDCUP PO ONE (13:33)
[2019-02-11] MEDS ORDERED: PANTOPRAZOLE SODIUM 40 MG VIAL IV ONE (13:34)
[2019-02-11] MEDS ORDERED: LABETALOL HCL INJ 20 MG/4 ML DISP.SYRIN IV ONE (17:32)
[2019-02-11] MEDS ORDERED: NORMAL SALINE 1000 ML 1,000 ML IV ONE (19:42)
[2019-02-11] MEDS ORDERED: HYDRALAZINE HCL INJ/PF 20 MG/1 ML SDV IV PRN (20:57)
--- NOTE | 2019-02-11 21:00 | EKG REPORT ---
SEVERITY:- ABNORMAL ECG - SINUS TACHYCARDIA VENTRICULAR TRIGEMINY FIRST DEGREE AV BLOCK BORDERLINE T WAVE ABNORMALITIES : Confirmed by: Mary Bruno MD 11-Feb-2019 20:59:40
--- NOTE | 2019-02-11 21:02 | EKG REPORT ---
SEVERITY:- ABNORMAL ECG - VENTRICULAR TRIGEMINY BORDERLINE PROLONGED QT INTERVAL POSSIBLE WANDERING ATRIAL PACEMAKER : Confirmed by: Mary Bruno MD 11-Feb-2019 21:00:35
--- NOTE | 2019-02-11 21:02 | EKG REPORT ---
SEVERITY:- ABNORMAL ECG - MULTIFOCAL ATRIAL TACHYCARDIA MULTIPLE ATRIAL PREMATURE COMPLEXES BORDERLINE PROLONGED QT INTERVAL : Confirmed by: Mary Bruno MD 11-Feb-2019 21:01:33
--- NOTE | 2019-02-11 21:03 | EKG REPORT ---
SEVERITY:- BORDERLINE ECG - SINUS TACHYCARDIA BORDERLINE T ABNORMALITIES, INFERIOR LEADS : Confirmed by: Mary Bruno MD 11-Feb-2019 21:02:15
--- NOTE | 2019-02-11 21:12 | Progress Note ---
Provider Note Provider Note: Topstitcher Lockstitch Note. Pt admitted to the ICU from the ED with alcohol withdrawal, hypertensive urgency, bradycardia, chest pain, depression, hypomagnesemia. Labs/Imaging Studies/EKG reviewe Chart reviewed remotely Plan: 1. Respiratory: monitor respiratory status closely 2. CV: hypertensive urgency. SBP 200 in the ED. s/p labetalol in the ED. Pt now with bradycardia and possible pauses. Probably due to hypomagnesemia. Magnesium replaced. Dr. Kenny called by the ED physician. Will see in am. For HTN will avoid agents that cause bradycardia. Will start prn hydralazne and norvasc. Cardiac enzymes are negative 3. Psych/Social: Alcohol withdrawal. CIWA scale. Prn ativan. No Precedex b/c of bradycardia. Continue MVI, thiamine, folic acid. Depression, pt has been evaluated by [facility] in the ED and cleared for out pt follow-up. 4. Electrolytes: Mag replaced in the ED. Will check a repeat level 5. Supportive care 6. Full H&P to follow
[2019-02-11] MEDS: AMLODIPINE BESYLATE 5 MG TABLET PO SCH (22:05)
[2019-02-11] MEDS: ONDANSETRON HCL INJ/PF 4 MG/2 ML SDV IV PRN (22:06)
[2019-02-11] MEDS: LORAZEPAM INJ 2 MG/1 ML VIAL IV PRN (22:06)
[2019-02-11] MEDS ORDERED: MAGNESIUM SULFATE 1 GM/D5W 100 ML IV SCH (22:45)
[2019-02-12] MEDS: LORAZEPAM INJ 2 MG/1 ML VIAL IV PRN (00:27)
[2019-02-12] MEDS ORDERED: DIAZEPAM INJ 10 MG/2 ML DISP.SYRIN ONE (01:58)
[2019-02-12] MEDS ORDERED: DIAZEPAM INJ 10 MG/2 ML DISP.SYRIN IV PRN (02:03)
[2019-02-12] MEDS: DIAZEPAM INJ 10 MG/2 ML DISP.SYRIN IV SCH ×2 (02:06→05:06)
[2019-02-12 03:46] LABS: ABSOLUTE BASOPHILS # (AUTO) 0.1 10^3/uL (0.0-0.2); ABSOLUTE EOSINOPHILS # (AUTO) 0.3 10^3/uL (0.0-0.6); ABSOLUTE LYMPHOCYTES (AUTO) 1.2 10^3/uL (0.5-4.7); ABSOLUTE MONOCYTES (AUTO) 0.5 10^3/uL (0.1-1.4); ABSOLUTE NEUT (AUTO) 5.2 10^3/uL (1.7-8.2); BASOPHILS % (AUTO) 0.8 % (0-2); EOSINOPHILS % (AUTO) 4.7 % (0-6); HEMATOCRIT 43.4 % (37.9-51.0); HEMOGLOBIN 14.7 g/dL (13.5-17.0); LYMPHOCYTES % (AUTO) 16.4 % (13-45); MEAN CORPUSCULAR HEMOGLOBIN 29.9 pg (27.0-33.4); MEAN CORPUSCULAR HGB CONC 33.8 g/dL (32.0-36.0); MEAN CORPUSCULAR VOLUME 88 fl (80-97); MONOCYTES % (AUTO) 6.3 % (3-13); PLATELET COUNT 162 10^3/uL (150-450); RED BLOOD COUNT 4.91 10^6/uL (4.35-5.55); RED CELL DISTRIBUTION WIDTH 14.6 % (11.5-14.0); SEGMENTED NEUTROPHILS % (AUTO) 71.8 % (42-78); TOTAL CELLS COUNTED % (AUTO) 100 %; WHITE BLOOD COUNT 7.2 10^3/uL (4.0-10.5)
[2019-02-12 03:58] LABS: ANION GAP 6 (5-19); BLOOD UREA NITROGEN 14 mg/dL (7-20); CALCIUM 8.7 mg/dL (8.4-10.2); CARBON DIOXIDE 27 mmol/L (22-30); CHLORIDE 101 mmol/L (98-107); GLUCOSE 101 mg/dL (75-110); POTASSIUM 3.7 mmol/L (3.6-5.0)
[2019-02-12] MEDS ORDERED: INFLUENZA QUAD (6MOS+) 2019-20 VAC 0.5 ML SYR IM ONE (08:00)
--- NOTE | 2019-02-12 08:07 | EKG REPORT ---
SEVERITY:- ABNORMAL ECG - VENTRICULAR TRIGEMINY WANDERING ATRIAL PACEMAKER : Confirmed by: Mary Bruno MD 12-Feb-2019 08:06:44
--- NOTE | 2019-02-12 09:13 | CRITICAL CARE ADMISSION REPORT ---
HPI Date:: 02/12/19 Reason for ICU Reason:: Hypertensive urgency, alcohol withdrawal, cardiac arrhythmia HPI: Pt is a 53 yo man with a h/o alcoholism, depression, HTN ( not on any meds) who presented to the ED last night c/o depression and chest pain. He was evaluated by psychiatry and cleared for outpt treatment. Prior to discharge home, pt became very hypertensive with an SBP of around 200. He got labetalol and then developed bradycardia with pauses worrisome for heart block. He was also found to have a low magnesium level. Pt was admitted to the ICU last night. His magnesium was repleted in the ED. He was started on prn hydralazine and scheduled norvasc. CIWA scale was continued and pt was started on prn ativan. He got IV valium overnight. This am, he is resting comfortable, easily arousable, and has no complaints. - Diagnosis/Plan (1) Alcohol withdrawal Qualifiers: Complication of substance-induced condition: uncomplicated Qualified Code(s): F10.230 - Alcohol dependence with withdrawal, uncomplicated Is this a current diagnosis for this admission?: Yes (2) Hypertensive urgency Is this a current diagnosis for this admission?: Yes (3) Cardiac arrhythmia Is this a current diagnosis for this admission?: Yes (4) Hypomagnesemia Is this a current diagnosis for this admission?: Yes (5) Depression Qualifiers: Depression Type: unspecified Qualified Code(s): F32.9 - Major depressive disorder, single episode, unspecified Is this a current diagnosis for this admission?: Yes Past Medical History Cardiac Medical History: Reports: Hypertension Psychiatric Medical History: Reports: Depression - and axiety, Post Traumatic Stress Disorder Social/Family History - Social History Smoking Status: Current Every Day Smoker Frequency of Alcohol Use: Heavy Hx Recreational Drug Use: Yes Drugs: Marijuana - Medication/Allergies Home Medications: No Home Medications 02/11/19 Allergies/Adverse Reactions: Penicillins Allergy (Verified 01/13/19 18:56) Review of Systems Review of Systems: per HPI Physical Exam Vital Signs: Temp Pulse Resp BP Pulse Ox 96.0 F L 88 14 149/96 H 99 02/12/19 08:00 02/12/19 08:00 02/12/19 08:00 02/12/19 08:00 02/12/19 08:00 Intake & Output 02/11/19 02/12/19 02/13/19 06:59 06:59 06:59 Intake Total 351.2 125 Output Total 700 0 Balance -348.8 125 Weight 83 kg Weight/Height Weight 83 kg Height 6 ft 1 in General appearance: PRESENT: no acute distress, well-developed, well-nourished Head exam: PRESENT: atraumatic, normocephalic Respiratory exam: PRESENT: clear to auscultation pallavi, unlabored Cardiovascular exam: PRESENT: RRR GI/Abdominal exam: PRESENT: soft, other - non-tender, non-distended Extremities exam: PRESENT: other - no edema Laboratory/Radiographs Laboratory Results: 02/12/19 03:18 02/12/19 03:18 02/11/19 02/11/19 02/11/19 08:49 08:49 08:49 WBC 6.0 RBC 5.02 Hgb 15.1 Hct 44.4 MCV 88 MCH 30.1 MCHC 34.1 RDW 14.4 H Plt Count 193 Seg Neutrophils % 62.8 Sodium 136.8 L Potassium 4.2 Chloride 102 Carbon Dioxide 22 Anion Gap 13 BUN 12 Creatinine 0.77 Est GFR ( Amer) > 60 Glucose 92 Calcium 8.7 Phosphorus Magnesium 1.5 L Total Bilirubin 0.8 AST 133 H Alkaline Phosphatase 132 H Total Protein 7.6 Albumin 4.3 Lipase 243.5 Urine Color Urine Appearance Urine pH Ur Specific [place] Urine Protein Urine Glucose (UA) Urine Ketones Urine Blood Urine Nitrite Ur Leukocyte Esterase Urine WBC (Auto) Urine RBC (Auto) 02/11/19 02/11/19 02/12/19 10:43 22:07 03:18 WBC 7.2 RBC 4.91 Hgb 14.7 Hct 43.4 MCV 88 MCH 29.9 MCHC 33.8 RDW 14.6 H Plt Count 162 Seg Neutrophils % 71.8 Sodium Potassium Chloride Carbon Dioxide Anion Gap BUN Creatinine Est GFR ( Amer) Glucose Calcium Phosphorus Magnesium 1.8 Total Bilirubin AST Alkaline Phosphatase Total Protein Albumin Lipase Urine Color YELLOW Urine Appearance CLEAR Urine pH 7.0 Ur Specific [place] 1.003 Urine Protein NEGATIVE Urine Glucose (UA) NEGATIVE Urine Ketones NEGATIVE Urine Blood SMALL H Urine Nitrite NEGATIVE Ur Leukocyte Esterase NEGATIVE Urine WBC (Auto) 0 Urine RBC (Auto) 1 02/12/19 02/12/19 03:18 03:18 WBC RBC Hgb Hct MCV MCH MCHC RDW Plt Count Seg Neutrophils % Sodium 134.0 L Potassium 3.7 Chloride 101 Carbon Dioxide 27 Anion Gap 6 BUN 14 Creatinine 0.84 Est GFR ( Amer) > 60 Glucose 101 Calcium 8.7 Phosphorus 3.3 Magnesium 1.9 Total Bilirubin AST Alkaline Phosphatase Total Protein Albumin Lipase Urine Color Urine Appearance Urine pH Ur Specific [place] Urine Protein Urine Glucose (UA) Urine Ketones Urine Blood Urine Nitrite Ur Leukocyte Esterase Urine WBC (Auto) Urine RBC (Auto) 02/11/19 02/11/19 02/11/19 08:49 08:49 13:47 Creatine Kinase 476 H CK-MB (CK-2) 3.86 Troponin I 0.018 0.015 02/12/19 03:18 Creatine Kinase CK-MB (CK-2) Troponin I 0.021 Impressions: Chest X-Ray 02/11/19 11:02 IMPRESSION: NO ACUTE RADIOGRAPHIC FINDING IN THE CHEST. EKG: EKG: sinus rhythm, PVCs, sinus pauses Critical Time -: The care of a critically ill patient is dynamic. This note represents a static moment in the admission process. orders and treatments may be given simulataneously and urgentl, and time is not underwriting service representative of the treatment process. This patient requires Critical Care secondary to life threating organ or limb dysfunction. Without the need for Critical Care services, the patient is at risk for increasid mortality and morbidity. Provider Note Provider Note: Assessment: 53 yo man with alcohol withdrawal, hypertensive urgency, cardiac arrhythmia, chest pain, depression, hypomagnesemia. Plan: 1. Respiratory: stable on room air 2. CV: hypertensive urgency, resolved. SBP now in the 140-150s on norvasc. CHest pain, resolved. Troponins negative. Cardiac arrhythmia with sinus pauses. Dr. Kenny consulted. 3. Psych/Social: Alcohol withdrawal. CIWA scale. Prn ativan. Will d/c scheduled valium. No Precedex b/c of bradycardia. Continue MVI, thiamine, folic acid. Depression, pt has been evaluated by [facility] in the ED and cleared for out pt follow-up. 4. Electrolytes: hypomagnesmia, resolved. Mg 1.9 today 5. Supportive care 6.Stable for transfer out of ICU.
[2019-02-12] MEDS: ONDANSETRON HCL INJ/PF 4 MG/2 ML SDV IV PRN ×2 (10:20→19:11)
[2019-02-12] MEDS: ACETAMINOPHEN 325 MG TABLET PO PRN (10:20)
[2019-02-12] MEDS: ENOXAPARIN SODIUM INJ 40 MG/0.4 ML DISP.SYRIN SUBCUT SCH (10:21)
[2019-02-12] MEDS: AMLODIPINE BESYLATE 5 MG TABLET PO SCH (10:22)
[2019-02-12] MEDS: MULTIVITAMIN TABLET PO SCH (10:23)
[2019-02-12] MEDS: THIAMINE HCL 100 MG TABLET PO SCH (10:23)
[2019-02-12] MEDS: FOLIC ACID 1 MG TABLET PO SCH (10:23)
[2019-02-12] MEDS ORDERED: MAG HYDROX/AL HYDROX/SIMETH SUSP 30 ML UDCUP PO PRN (12:51)
[2019-02-12] MEDS: FAMOTIDINE 20 MG TABLET PO SCH ×2 (14:16→22:33)
--- NOTE | 2019-02-12 17:40 | PSYCHOLOGICAL NOTE ---
Psych Note - Psych Note Date seen by psych provider: 02/11/19 Time seen by psych provider: 13:11 - Chart review at 1311. Evaluation from 1421- 1426. Psych Note: Presenting Problem: Came via EMS for Chest Pain, anxiety, shaking, breathing fast and diaphoretic. He is homeless and has alcohol use disorder. Serum Alcohol Level was 133 upon arrival to the ED. He was seen by [facility] 01/13/19 after IVC from [place] where he had been detoxed for 6 days then he reported S I/Hallucinations because he said they were done treating him and not setting him up with anything, he was provided a prescription for Zyprexa 2.5MG BID and instructed to follow up with [facility]. He stated he did not follow up. He reportedly had been to the [facility] since and was drinking the past 6 days. He stated his main concern was chest pain but if that checked out he was interested in voluntary inpatient treatment for alcohol detox. Had a conversation about not bouncing between facilities and following up outpatient. Patient alert and oriented x5 with linear thinking, mood was euthymic with congruent affect, he denied SI/HI, he made fair eye contact, he was able to engage and carry on dialogue conversation which was within normal limits for rate/tone/prosody. He was more forth coming (that he was just at the [facility] and had been on a 6 day drinking binge) with Dr. Chi when she spoke with him. Made a verbal referral to [facility]. They stated they would have to see if their doctor would accept based on previous stay. When made aware of being at the [facility] and only drinking the past 6 days they stated detox would not be required but patient could do a walk in and be assessed if he felt they needed to evaluate him. Diagnosis: Alcohol Use Disorder, Severe Homelessness Impression/Plan: Patient is cleared from acute psychiatric services. Patient alert and oriented x5 with linear thinking, mood was euthymic with congruent affect, he denied SI/HI, he made fair eye contact, he was able to engage and carry on dialogue conversation which was within normal limits for rate/tone/prosody. He was more forth coming (that he was just at the [facility] and had been on a 6 day drinking binge) with Dr. Chi when she spoke with him. Made verbal referral to [facility], patient made aware that he could walk in to their facility and be assessed. Patient provided with the outpatient MH resource sheet which highlighted [facility], [facility] and listed [facility] Made referral to [facility] (let them know where typically sleeps: [facility]). Also provided the [address] Sheet with homeless prison information and documented to request case management there. Consulted with Dr. Chi regarding the management and care of patient. ED Physician in agreement with recommendation but still monitoring medical concerns.
--- NOTE | 2019-02-12 22:59 | PDOC CONSULTATION ---
Consultation-Blank Consultation: CARDIOLOGY CONSULTATION by Dr. Mary Bruno on 02/12/2019. Patient seen at 9 AM on 02/12/2019. 60 minutes spent on this patient with more than 50% of time spent in direct patient care. REASON for CONSULTATION: Cardiac arrhythmia. CONSULT REQUESTING PHYSICIAN: Dr. Pimentel, ER physician, and Dr. Aminata Hollins, regulation supervisor. HISTORY PRESENT ILLNESS: Patient is a 53-year-old male with a history of chronic alcohol abuse, states that Cammy had 1/5 of work-up. He states that he came to the emergency room with chest pain which is reproducible by pressing on the left front of the chest. He states he wants detox. He has a history of hypertension. Since he was about to be sent home since doing cardiac enzymes are negative for non-ST elevation [place]. He but his blood pressure was very high and he was given labetalol 20 mg IV push. Subsequently the patient was about to be discharged when the ER physician noted that the patient had bradycardia and also pauses. Most likely this is due to labetalol. His magnesium was low at 1.5 and this has been replenished. His review of the strips did not show any significant pauses except for compensatory pause after PVCs. Also his rhythm shows some chaotic atrial mechanism, and multifocal atrial tachycardia. The patient has not had syncope. Even when he was bradycardia his blood pressure was in fact elevated at 165/104. Hence no definite indication for pacemaker. The patient also is being having psych evaluation for his alcohol addiction. He states that he has a history of cirrhosis of the liver secondary to alcohol abuse. Past Medical History Cardiac Medical History: Reports: Hx Hypertension Psychiatric Medical History: Reports: Hx Anxiety, Hx Depression - and axiety, Hx Post Traumatic Stress Disorder Past Surgical History: Reports: Hx Abdominal Surgery - Hernia, Hx Oral Surgery FAMILY HISTORY: Patient denies any major illness in the family members. SOCIAL HISTORY: The patient smokes he has been a smoker for a long time he smokes about a pack of cigarettes a day. He also has a history of significant alcohol abuse for prolonged periods. There is no history of street drug abuse. ALLERGIES: The patient is allergic to penicillin. RESUSCITATION STATUS: The patient is a full code. He states he has no family members to be his surrogate healthcare decision maker. Hence he is not able to name anyone. REVIEW OF SYSTEMS: Noted although the patient is awake and able to answer question he is in DTs and hence his history is very sketchy. He denies any fever chills or Reiger's. There is no history of headaches or head injury. The patient has history of chronic alcoholism and he states his last drink was this morning. He came to the emergency room for further detox. He has a history of smoking and possibly has COPD but not on seizure any treatment. He has no history of diabetes mellitus or thyroid disease. History of hypertension states occasionally takes antihypertensive medication. He has no history of heart fa ilure. He denies any palpitations or syncope. There is no history of TIA CVA. There is no history of polydipsia polyuria or heat or cold intolerance. There is no bleeding diathesis. He also states he has a history of cirrhosis, but no bleeding varices or GI bleed or hematemesis. There is no history of jaundice. There is no history of hepatic failure. Current Medications Generic Name Dose Route Start Last Admin Trade Name Nishq PRN Reason Stop Dose Admin Acetaminophen 650 mg 02/11/19 20:51 02/12/19 10:20 Tylenol 325 Mg Tablet PO 03/13/19 20:50 650 mg Q4HP PRN Administration FOR PAIN Al Hydrox/Mg Hydrox/Simethicone 30 ml 02/12/19 12:51 Maalox Plus Susp 30 Udcup PO 03/14/19 12:50 Q4HP PRN HEARTBURN Amlodipine Besylate 5 mg 02/11/19 21:30 02/12/19 10:22 Norvasc 5 Mg Tablet PO 03/13/19 21:29 5 mg DAILY MATIAS Administration Enoxaparin Sodium 40 mg 02/12/19 10:00 02/12/19 10:21 Lovenox Inj 40 Mg/0.4 Ml Disp.Syrin SUBCUT 03/14/19 09:59 40 mg DAILY MATIAS Administration Famotidine 20 mg 02/12/19 12:54 02/12/19 22:33 Pepcid 20 Mg Tablet PO 03/14/19 12:53 Not Given Q12 MATIAS Folic Acid 1 mg 02/12/19 10:00 02/12/19 10:23 Folvite 1 Mg Tablet PO 03/14/19 09:59 1 mg DAILY MATIAS Administration Hydralazine HCl 10 mg 02/11/19 20:57 02/11/19 22:05 Apresoline Inj/Pf 20 Mg/1 Ml Sdv IV 03/13/19 20:56 10 mg Q4HP PRN Administration sbp > 160 Lorazepam 2 mg 02/12/19 07:47 Ativan Inj 2 Mg/1 Ml Vial IV 02/19/19 07:46 Q2HP PRN ANXIETY/AGITATION Multivitamins 1 tab 02/12/19 10:00 02/12/19 10:23 Tab-A-Shai (Multiple Vitamin) Tablet PO 03/14/19 09:59 1 tab DAILY MATIAS Administration Ondansetron HCl 4 mg 02/11/19 20:51 02/12/19 19:11 Zofran Inj/Pf 4 Mg/2 Ml Sdv IV 03/13/19 20:50 4 mg Q4HP PRN Administration FOR NAUSEA/VOMITING Sodium Chloride 2.5 ml 02/11/19 22:00 02/12/19 22:33 Saline Flush 2.5 Ml Monoject Prefil Syrin IV 03/13/19 21:59 Not Given Q8 MATIAS Thiamine HCl 100 mg 02/12/19 10:00 02/12/19 10:23 Thiamine 100 Mg Tablet PO 03/14/19 09:59 100 mg DAILY MATIAS Administration Discontinued Medications Generic Name Dose Route Start Last Admin Trade Name Freq PRN Reason Stop Dose Admin Al Hydrox/Mg Hydrox/Simethicone 30 ml 02/11/19 13:33 02/11/19 13:57 Maalox Plus Susp 30 Udcup PO 02/11/19 13:34 30 ml NOW ONE Administration Diazepam Confirm 02/12/19 01:58 02/12/19 02:06 Valium Inj 10 Mg/2 Ml Disp.Syrin Administered 02/12/19 01:59 Not Given Dose 10 mg .ROUTE .STK-MED ONE Diazepam 10 mg 02/12/19 02:00 02/12/19 05:06 Valium Inj 10 Mg/2 Ml Disp.Syrin IV 02/19/19 01:59 10 mg Q4 MATIAS Administration Diazepam 1 mg 02/12/19 02:03 Valium Inj 10 Mg/2 Ml Disp.Syrin IV 02/19/19 02:02 Q1HP PRN AGITAITION/ANXIETY Thiamine HCl 100 mg/ Folic 251.2 mls @ 502.4 mls/hr 02/11/19 10:58 02/11/19 12:14 Acid 1 mg/ Sodium Chloride IV 02/11/19 11:27 Infused NOW ONE Infusion Magnesium Sulfate/Dextrose 1 gm in 100 mls @ 100 mls/hr 02/11/19 11:00 13:31 Magnesium Sulfate Rtu-D5w 1 Gm/100 Ml Premix IV 02/11/19 11:59 Infused NOW ONE Infusion Sodium Chloride 1,000 mls @ 125 mls/hr 02/11/19 19:42 02/11/19 20:27 Nacl 0.9% 1000 Ml Iv Soln IV 02/12/19 03:41 125 mls/hr NOW ONE Administration Magnesium Sulfate/Dextrose Confirm 02/11/19 22:11 02/12/19 00:07 Magnesium Sulfate Rtu-D5w 1 Gm/100 Ml Premix Administered 02/11/19 22:12 Not Given Dose 1 gm in 100 mls @ ud IV .STK-MED ONE Influenza Virus Vaccine Quadrival 0.5 ml 02/12/19 08:00 Flulaval Quad 2019-20 Vac 0.5 Ml Syr IM 02/12/19 08:01 .ONCE ONE Labetalol HCl 20 mg 02/11/19 17:32 02/11/19 17:38 Normodyne Inj 20 Mg/4 Ml Syringe IV 02/11/19 17:33 20 mg NOW ONE Administration Lorazepam 1 mg 02/11/19 10:59 02/11/19 11:11 Ativan Inj 2 Mg/1 Ml Vial IV 02/11/19 11:00 1 mg NOW ONE Administration Lorazepam 1 mg 02/11/19 18:53 02/11/19 19:09 Ativan Inj 2 Mg/1 Ml Vial IV 02/11/19 18:54 1 mg NOW ONE Administration Lorazepam 2 mg 02/11/19 21:02 02/12/19 00:27 Ativan Inj 2 Mg/1 Ml Vial IV 02/18/19 21:01 2 mg Q2HP PRN Administration ANXIETY/AGITATION Ondansetron HCl 4 mg 02/11/19 11:02 02/11/19 11:10 Zofran Inj/Pf 4 Mg/2 Ml Sdv IV 02/11/19 11:03 4 mg NOW ONE Administration Ondansetron HCl 4 mg 02/11/19 13:33 02/11/19 13:54 Zofran Inj/Pf 4 Mg/2 Ml Sdv IV 02/11/19 13:34 4 mg NOW ONE Administration Ondansetron HCl 4 mg 02/11/19 17:52 02/11/19 17:57 Zofran Inj/Pf 4 Mg/2 Ml Sdv IV 02/11/19 17:53 4 mg NOW ONE Administration Pantoprazole Sodium 40 mg 02/11/19 13:34 02/11/19 13:57 Protonix Iv Inj 40 Mg Vial IV 02/11/19 13:35 40 mg NOW ONE Administration PHYSICAL EXAMINATION: The patient appears to be disheveled and chronically ill. He is having mild DTs with tremors in both hands. Selected Entries 02/12/19 02/12/19 08:00 08:50 Temperature 96.0 F L Temperature Axillary Source Pulse Rate 88 Heart Rate ( 85 Monitors) Respiratory 15 Rate Blood Pressure 159/111 H Blood Pressure 149/96 H [Left Upper Arm ] Blood Pressure 127 Mean Blood Pressure 113 Mean [Left Upper Arm] Blood Pressure Supine Position [Left Upper Arm] O2 Sat by Pulse 99 99 Oximetry Oxygen Delivery Room Air Method ( includes room air) HEAD: Is atraumatic normocephalic. EYES: Pupils are equal round regular reactive to light and accommodation. Extraocular movements are normal. There is no conjunctival pallor. There is no scleral icterus. ENT is negative. NECK: Is supple there is no JVD. Carotids equal there is no bruit. There is no lymphadenopathy. There is no goiter. There is no accessory muscle respiration use.. Trachea central. LUNGS: Shows diminished air entry prolonged expiration without any rhonchi rales or wheezing. On percussion there is hyperresonance. On palpation of the area in the left mid chest there is tenderness, and this reproduces the patient's clinical symptoms of chest pain. Hence clearly noncardiac. EXTREMITIES: Femorals are well felt. There is no femoral bruits. Leg pulses are well felt. There is no pedal edema. There is no DVT or cellulitis. There is no calf tenderness. HEART: S1-S2 is heard. There is no S3 gallop there is no S4 gallop. There is systolic murmur left sternal border and the apex without radiation. There is no rub. ABDOMEN: Soft. There is no hepatospleno megaly. Bowel sounds well heard. There is no tender areas masses. SEWER TAPPER: The patient is slightly drowsy. He seems to be oriented x3. He has tremors of both hands. This is consistent with early DTs. There are a moves all 4 extremities. PSYCHIATRIC: Psychiatric exam not done due to patient being in early DTs. Labs- Entire Visit 02/11/19 02/11/19 02/11/19 08:49 08:49 08:49 WBC 6.0 RBC 5.02 Hgb 15.1 Hct 44.4 MCV 88 MCH 30.1 MCHC 34.1 RDW 14.4 H Plt Count 193 Lymph % (Auto) 23.4 [place] % (Auto) 9.9 Eos % (Auto) 2.6 Baso % (Auto) 1.3 Absolute Neuts (auto) 3.8 Absolute Lymphs (auto) 1.4 Absolute Monos (auto) 0.6 Absolute Eos (auto) 0.2 Absolute Basos (auto) 0.1 Seg Neutrophils % 62.8 Sodium 136.8 L Potassium 4.2 Chloride 102 Carbon Dioxide 22 Anion Gap 13 BUN 12 Creatinine 0.77 Est GFR ( Amer) > 60 Est GFR (MDRD) Non-Af > 60 Glucose 92 Calcium 8.7 Phosphorus Magnesium 1.5 L Total Bilirubin 0.8 Direct Bilirubin 0.3 Neonat Total Bilirubin Not Reportable Neonat Direct Bilirubin Not Reportable Neonat Indirect Bili Not Reportable AST 133 H ALT 73 Alkaline Phosphatase 132 H Creatine Kinase 476 H CK-MB (CK-2) Troponin I Total Protein 7.6 Albumin 4.3 Lipase 243.5 Urine Color Urine Appearance Urine pH Ur Specific [place] Urine Protein Urine Glucose (UA) Urine Ketones Urine Blood Urine Nitrite Urine Bilirubin Urine Urobilinogen Ur Leukocyte Esterase Urine WBC (Auto) Urine RBC (Auto) Urine Ascorbic Acid Salicylates < 1.0 L Urine Opiates Screen Urine Methadone Screen Acetaminophen < 10 L Ur Barbiturates Screen Ur Phencyclidine Scrn Ur Amphetamines Screen U Benzodiazepines Scrn Urine Cocaine Screen U Marijuana (THC) Screen Serum Alcohol 133 02/11/19 02/11/19 02/11/19 08:49 10:43 10:43 WBC RBC Hgb Hct MCV MCH MCHC RDW Plt Count Lymph % (Auto) [place] % (Auto) Eos % (Auto) Baso % (Auto) Absolute Neuts (auto) Absolute Lymphs (auto) Absolute Monos (auto) Absolute Eos (auto) Absolute Basos (auto) Seg Neutrophils % Sodium Potassium Chloride Carbon Dioxide Anion Gap BUN Creatinine Est GFR ( Amer) Est GFR (MDRD) Non-Af Glucose Calcium Phosphorus Magnesium Total Bilirubin Direct Bilirubin Neonat Total Bilirubin Neonat Direct Bilirubin Neonat Indirect Bili AST ALT Alkaline Phosphatase Creatine Kinase CK-MB (CK-2) 3.86 Troponin I 0.018 Total Protein Albumin Lipase Urine Color YELLOW Urine Appearance CLEAR Urine pH 7.0 Ur Specific [place] 1.003 Urine Protein NEGATIVE Urine Glucose (UA) NEGATIVE Urine Ketones NEGATIVE Urine Blood SMALL H Urine Nitrite NEGATIVE Urine Bilirubin NEGATIVE Urine Urobilinogen NEGATIVE Ur Leukocyte Esterase NEGATIVE Urine WBC (Auto) 0 Urine RBC (Auto) 1 Urine Ascorbic Acid NEGATIVE Salicylates Urine Opiates Screen NEGATIVE Urine Methadone Screen NEGATIVE Acetaminophen Ur Barbiturates Screen NEGATIVE Ur Phencyclidine Scrn NEGATIVE Ur Amphetamines Screen NEGATIVE U Benzodiazepines Scrn NEGATIVE Urine Cocaine Screen NEGATIVE U Marijuana (THC) Screen NEGATIVE Serum Alcohol 02/11/19 02/11/19 02/12/19 13:47 22:07 03:18 WBC 7.2 RBC 4.91 Hgb 14.7 Hct 43.4 MCV 88 MCH 29.9 MCHC 33.8 RDW 14.6 H Plt Count 162 Lymph % (Auto) 16.4 [place] % (Auto) 6.3 Eos % (Auto) 4.7 Baso % (Auto) 0.8 Absolute Neuts (auto) 5.2 Absolute Lymphs (auto) 1.2 Absolute Monos (auto) 0.5 Absolute Eos (auto) 0.3 Absolute Basos (auto) 0.1 Seg Neutrophils % 71.8 Sodium Potassium Chloride Carbon Dioxide Anion Gap BUN Creatinine Est GFR ( Amer) Est GFR (MDRD) Non-Af Glucose Calcium Phosphorus Magnesium 1.8 Total Bilirubin Direct Bilirubin Neonat Total Bilirubin Neonat Direct Bilirubin Neonat Indirect Bili AST ALT Alkaline Phosphatase Creatine Kinase CK-MB (CK-2) Troponin I 0.015 Total Protein Albumin Lipase Urine Color Urine Appearance Urine pH Ur Specific [place] Urine Protein Urine Glucose (UA) Urine Ketones Urine Blood Urine Nitrite Urine Bilirubin Urine Urobilinogen Ur Leukocyte Esterase Urine WBC (Auto) Urine RBC (Auto) Urine Ascorbic Acid Salicylates Urine Opiates Screen Urine Methadone Screen Acetaminophen Ur Barbiturates Screen Ur Phencyclidine Scrn Ur Amphetamines Screen U Benzodiazepines Scrn Urine Cocaine Screen U Marijuana (THC) Screen Serum Alcohol 02/12/19 02/12/19 02/12/19 03:18 03:18 03:18 WBC RBC Hgb Hct MCV MCH MCHC RDW Plt Count Lymph % (Auto) [place] % (Auto) Eos % (Auto) Baso % (Auto) Absolute Neuts (auto) Absolute Lymphs (auto) Absolute Monos (auto) Absolute Eos (auto) Absolute Basos (auto) Seg Neutrophils % Sodium 134.0 L Potassium 3.7 Chloride 101 Carbon Dioxide 27 Anion Gap 6 BUN 14 Creatinine 0.84 Est GFR ( Amer) > 60 Est GFR (MDRD) Non-Af > 60 Glucose 101 Calcium 8.7 Phosphorus 3.3 Magnesium 1.9 Total Bilirubin Direct Bilirubin Neonat Total Bilirubin Neonat Direct Bilirubin Neonat Indirect Bili AST ALT Alkaline Phosphatase Creatine Kinase CK-MB (CK-2) Troponin I 0.021 Total Protein Albumin Lipase Urine Color Urine Appearance Urine pH Ur Specific [place] Urine Protein Urine Glucose (UA) Urine Ketones Urine Blood Urine Nitrite Urine Bilirubin Urine Urobilinogen Ur Leukocyte Esterase Urine WBC (Auto) Urine RBC (Auto) Urine Ascorbic Acid Salicylates Urine Opiates Screen Urine Methadone Screen Acetaminophen Ur Barbiturates Screen Ur Phencyclidine Scrn Ur Amphetamines Screen U Benzodiazepines Scrn Urine Cocaine Screen U Marijuana (THC) Screen Serum Alcohol Chest X-Ray 02/11/19 11:02 IMPRESSION: NO ACUTE RADIOGRAPHIC FINDING IN THE CHEST. IMPRESSION/RECOMMENDATION: 1. Bradycardia and pauses secondary to labetalol. Recommend avoiding antihypertensives with SA/AV vania blocking properties. 2. Most likely the patient is chaotic atrial mechanism secondary to underlying COPD and tobacco abuse. 3. Early delirium tremens. Continue alcohol withdrawal treatment. 4. Hypertension: This is secondary to patient's history of hypertension which is untreated and also superadded effect of alcohol withdrawal. As mentioned earlier would avoid antihypertensives with SA/AV vania blocking properties. 5. History of alcohol abuse: Would recommend patient be admitted for to a detox center as an outpatient. 6. CHRONIC OBSTRUCTIVE DISEASE: By physical exam. At present does not seem to be in any acute exacerbation. 7. Tobacco abuse disorder: Tobacco cessation counseling to be given later once the patient recovers from his alcohol withdrawal. Medications reviewed. Management plan discussed with the regulation supervisor on the case. Medical decision making is of moderate to high complexity. 60 minutes spent on this patient more than 50% of time spent in direct patient care. Cardiac status is stable. Will sign off.
[2019-02-13] MEDS: ONDANSETRON HCL INJ/PF 4 MG/2 ML SDV IV PRN (04:21)
[2019-02-13] MEDS: LORAZEPAM INJ 2 MG/1 ML VIAL IV PRN ×2 (04:22→12:14)
[2019-02-13 04:23] LABS: ABSOLUTE EOSINOPHILS # (AUTO) 0.4 10^3/uL (0.0-0.6); ABSOLUTE LYMPHOCYTES (AUTO) 1.3 10^3/uL (0.5-4.7); ABSOLUTE MONOCYTES (AUTO) 0.4 10^3/uL (0.1-1.4); ABSOLUTE NEUT (AUTO) 3.7 10^3/uL (1.7-8.2); BASOPHILS % (AUTO) 0.7 % (0-2); EOSINOPHILS % (AUTO) 7.4 % (0-6); HEMATOCRIT 45.4 % (37.9-51.0); HEMOGLOBIN 15.5 g/dL (13.5-17.0); MEAN CORPUSCULAR HEMOGLOBIN 30.3 pg (27.0-33.4); MEAN CORPUSCULAR HGB CONC 34.1 g/dL (32.0-36.0); MEAN CORPUSCULAR VOLUME 89 fl (80-97); MONOCYTES % (AUTO) 6.9 % (3-13); PLATELET COUNT 140 10^3/uL (150-450); RED BLOOD COUNT 5.11 10^6/uL (4.35-5.55); TOTAL CELLS COUNTED % (AUTO) 100 %; WHITE BLOOD COUNT 5.9 10^3/uL (4.0-10.5)
[2019-02-13 04:46] LABS: ANION GAP 8 (5-19); BLOOD UREA NITROGEN 12 mg/dL (7-20); CALCIUM 9.2 mg/dL (8.4-10.2); CARBON DIOXIDE 25 mmol/L (22-30); CHLORIDE 102 mmol/L (98-107); GLUCOSE 105 mg/dL (75-110); POTASSIUM 4.3 mmol/L (3.6-5.0)
[2019-02-13] MEDS ORDERED: ONDANSETRON HCL INJ/PF 4 MG/2 ML SDV IV PRN (08:30)
[2019-02-13] MEDS: FAMOTIDINE 20 MG TABLET PO SCH (09:33)
[2019-02-13] MEDS: ENOXAPARIN SODIUM INJ 40 MG/0.4 ML DISP.SYRIN SUBCUT SCH (09:33)
[2019-02-13] MEDS: MULTIVITAMIN TABLET PO SCH (09:34)
[2019-02-13] MEDS: THIAMINE HCL 100 MG TABLET PO SCH (09:34)
[2019-02-13] MEDS: ACETAMINOPHEN 325 MG TABLET PO PRN (09:34)
[2019-02-13] MEDS: FOLIC ACID 1 MG TABLET PO SCH (09:34)
[2019-02-13] MEDS ORDERED: AMLODIPINE BESYLATE 10 MG TABLET PO SCH (10:00)
[2019-02-13 13:02] VITALS: BP 131/100
--- NOTE | 2019-02-13 13:39 | PDOC DISCHARGE SUMMARY ---
Impression - Admit/DC Date/PCP Admission Date/Primary Care Provider: 02/11/19 20:06 Discharge Date: 02/13/19 - Discharge Diagnosis (1) Alcohol withdrawal Is this a current diagnosis for this admission?: Yes (2) Hypertensive urgency Is this a current diagnosis for this admission?: Yes (3) Cardiac arrhythmia Is this a current diagnosis for this admission?: Yes (4) Hypomagnesemia Is this a current diagnosis for this admission?: Yes (5) Depression Is this a current diagnosis for this admission?: Yes - Additional Information Resuscitation Status: Full Code Discharge Diet: As Tolerated Discharge Activity: Activity As Tolerated Referrals: [facility] [Outside] - Follow up as needed [facility] [Outside] - 02/12/19 8:00 am ([facility] does walk in Sunday- Sunday [phone]. You should walk in tomorrow (02/12/19) at 0800. ) [facility] [NO LOCAL MD] - Follow up as needed Prescriptions: Amlodipine Besylate [Norvasc 10 mg Tablet] 10 mg PO DAILY #30 tablet Home Medications: Amlodipine Besylate [Norvasc 10 mg Tablet] 10 mg PO DAILY #30 tablet 02/13/19 History of Present Illiness History of Present Illness: Pt is a 53 yo man with a h/o alcoholism, depression, HTN ( not on any meds) who presented to the ED c/o depression and chest pain. He was evaluated by psychiatry and cleared for outpt treatment. Prior to discharge home, pt became very hypertensive with an SBP of around 200. He got labetalol and then developed bradycardia with pauses worrisome for heart block. He was also found to have a low magnesium level. Pt was admitted to the ICU. His magnesium was repleted in the ED. He was started on prn hydralazine and scheduled norvasc. CIWA scale was continued and pt was started on prn ativan. Hospital Course Hospital Course: Today, pt is resting comfortably. Has only gotten one dose of prn ativan since yesterday. Assessment: 53 yo man with alcohol withdrawal, hypertensive urgency, cardiac arrhythmia, chest pain, depression, hypomagnesemia. Plan: 1. Respiratory: stable on room air 2. CV: hypertensive urgency, resolved. SBP now in the 140-150s on norvasc 10 mg daily. CHest pain, resolved. Troponins negative. Cardiac arrhythmia with sinus pauses, resolved. Seen by cardiology. 3. Psych/Social: Alcohol withdrawal, resolved. Depression, pt has been evaluated by [facility] in the ED and cleared for out pt follow-up. Pt is homeless but has been given resources by psych in terms of out pt treatment and and homeless shelters. 4. Electrolytes: hypomagnesmia, resolved. 5. Pt is stable for discharge. Physical Exam Vital Signs: Temp Pulse Resp BP Pulse Ox 98.8 F 88 20 131/100 H 96 02/12/19 12:00 02/12/19 12:00 02/12/19 14:00 02/13/19 12:00 02/12/19 14:00 Intake & Output 02/12/19 02/13/19 02/14/19 06:59 06:59 06:59 Intake Total 351.2 310 Output Total 700 1550 Balance -348.8 -1240 Weight 83 kg 83 kg General appearance: PRESENT: no acute distress, well-developed, well-nourished Head exam: PRESENT: atraumatic, normocephalic Respiratory exam: PRESENT: clear to auscultation pallavi, unlabored Cardiovascular exam: PRESENT: RRR GI/Abdominal exam: PRESENT: soft Extremities exam: PRESENT: other - no edema Results Laboratory Results: WBC 5.9 10^3/uL (4.0-10.5) 02/13/19 04:09 RBC 5.11 10^6/uL (4.35-5.55) 02/13/19 04:09 Hgb 15.5 g/dL (13.5-17.0) 02/13/19 04:09 Hct 45.4 % (37.9-51.0) 02/13/19 04:09 MCV 89 fl (80-97) 02/13/19 04:09 MCH 30.3 pg (27.0-33.4) 02/13/19 04:09 MCHC 34.1 g/dL (32.0-36.0) 02/13/19 04:09 RDW 14.0 % (11.5-14.0) 02/13/19 04:09 Plt Count 140 10^3/uL (150-450) L 02/13/19 04:09 Lymph % (Auto) 22.0 % (13-45) 02/13/19 04:09 [place] % (Auto) 6.9 % (3-13) 02/13/19 04:09 Eos % (Auto) 7.4 % (0-6) H 02/13/19 04:09 Baso % (Auto) 0.7 % (0-2) 02/13/19 04:09 Absolute Neuts (auto) 3.7 10^3/uL (1.7-8.2) 02/13/19 04:09 Absolute Lymphs (auto) 1.3 10^3/uL (0.5-4.7) 02/13/19 04:09 Absolute Monos (auto) 0.4 10^3/uL (0.1-1.4) 02/13/19 04:09 Absolute Eos (auto) 0.4 10^3/uL (0.0-0.6) 02/13/19 04:09 Absolute Basos (auto) 0.0 10^3/uL (0.0-0.2) 02/13/19 04:09 Seg Neutrophils % 63.0 % (42-78) 02/13/19 04:09 Sodium 135.3 mmol/L (137-145) L 02/13/19 04:09 Potassium 4.3 mmol/L (3.6-5.0) 02/13/19 04:09 Chloride 102 mmol/L (98-107) 02/13/19 04:09 Carbon Dioxide 25 mmol/L (22-30) 02/13/19 04:09 Anion Gap 8 (5-19) 02/13/19 04:09 BUN 12 mg/dL (7-20) 02/13/19 04:09 Creatinine 0.73 mg/dL (0.52-1.25) 02/13/19 04:09 Est GFR ( Amer) > 60 (>60) 02/13/19 04:09 Est GFR (MDRD) Non-Af > 60 (>60) 02/13/19 04:09 Glucose 105 mg/dL (75-110) 02/13/19 04:09 Calcium 9.2 mg/dL (8.4-10.2) 02/13/19 04:09 Phosphorus 3.3 mg/dL (2.5-4.5) 02/12/19 03:18 Magnesium 1.9 mg/dL (1.6-2.3) 02/13/19 04:09 Total Bilirubin 0.8 mg/dL (0.2-1.3) 02/11/19 08:49 Direct Bilirubin 0.3 mg/dL (0.0-0.4) 02/11/19 08:49 Neonat Total Bilirubin Not Reportable 02/11/19 08:49 Neonat Direct Bilirubin Not Reportable 02/11/19 08:49 Neonat Indirect Bili Not Reportable 02/11/19 08:49 AST 133 U/L (17-59) H 02/11/19 08:49 ALT 73 U/L (<50) 02/11/19 08:49 Alkaline Phosphatase 132 U/L (38-126) H 02/11/19 08:49 Creatine Kinase 476 U/L (55-170) H 02/11/19 08:49 CK-MB (CK-2) 3.86 ng/mL (<4.55) 02/11/19 08:49 Troponin I 0.021 ng/mL 02/12/19 03:18 Total Protein 7.6 g/dL (6.3-8.2) 02/11/19 08:49 Albumin 4.3 g/dL (3.5-5.0) 02/11/19 08:49 Lipase 243.5 U/L (23-300) 02/11/19 08:49 Urine Color YELLOW 02/11/19 10:43 Urine Appearance CLEAR 02/11/19 10:43 Urine pH 7.0 (5.0-9.0) 02/11/19 10:43 Ur Specific [place] 1.003 02/11/19 10:43 Urine Protein NEGATIVE mg/dL (NEGATIVE) 02/11/19 10:43 Urine Glucose (UA) NEGATIVE mg/dL (NEGATIVE) 02/11/19 10:43 Urine Ketones NEGATIVE mg/dL (NEGATIVE) 02/11/19 10:43 Urine Blood SMALL (NEGATIVE) H 02/11/19 10:43 Urine Nitrite NEGATIVE (NEGATIVE) 02/11/19 10:43 Urine Bilirubin NEGATIVE (NEGATIVE) 02/11/19 10:43 Urine Urobilinogen NEGATIVE mg/dL (<2.0) 02/11/19 10:43 Ur Leukocyte Esterase NEGATIVE (NEGATIVE) 02/11/19 10:43 Urine WBC (Auto) 0 /HPF 02/11/19 10:43 Urine RBC (Auto) 1 /HPF 02/11/19 10:43 Urine Ascorbic Acid NEGATIVE (NEGATIVE) 02/11/19 10:43 Salicylates < 1.0 mg/dL (2.0-20.0) L 02/11/19 08:49 Urine Opiates Screen NEGATIVE 02/11/19 10:43 Urine Methadone Screen NEGATIVE 02/11/19 10:43 Acetaminophen < 10 ug/mL (10-30) L 02/11/19 08:49 Ur Barbiturates Screen NEGATIVE 02/11/19 10:43 Ur Phencyclidine Scrn NEGATIVE 02/11/19 10:43 Ur Amphetamines Screen NEGATIVE 02/11/19 10:43 U Benzodiazepines Scrn NEGATIVE 02/11/19 10:43 Urine Cocaine Screen NEGATIVE 02/11/19 10:43 U Marijuana (THC) Screen NEGATIVE 02/11/19 10:43 Serum Alcohol 133 mg/dL (NONE DETECTED) 02/11/19 08:49 02/11/19 02/11/19 02/12/19 08:49 13:47 03:18 CK-MB (CK-2) 3.86 Troponin I 0.018 0.015 0.021 Impressions: Chest X-Ray 02/11/19 11:02 IMPRESSION: NO ACUTE RADIOGRAPHIC FINDING IN THE CHEST. Plan Time Spent: Less than 30 Minutes Stroke Is this a Stroke Patient?: No Stroke Pt being discharged on Anti-thrombolytic therapy?: No Reason(s) for not prescribing Anti-thrombolytic therapy:: Not indicated Acute Heart Failure - Is this a Heart Failure Patient?: No
== END 2019-02-13 15:24 | disposition home or self-care (01) | DRG 897 ==
LOC: ER 09:10 → EH 20:06 → ICU 21:47
PROVIDERS: ADMIT Internal Medicine; ATTEND Internal Medicine
DX: F10.239 Alcohol dependence with withdrawal, unspecified (principal); I16.0 Hypertensive urgency; E83.42 Hypomagnesemia; I10 Essential (primary) hypertension; F41.9 Anxiety disorder, unspecified; Y90.6 Blood alcohol level of 120-199 mg/100 ml
CPT/HCPCS: 36415; 71045; 80048; 80053; 80307; 81001; 82550; 82553; 83690; 83735; 84100; 84484; 85025; 93005; 93010; 96365; 96367; 96375; 96376; 99285; J0360; J1650; J2060; J2405; J3360; J3411; J3475; J3490; J7030; J7050; S0164